=== PATIENT | male | born 1965 | race Two or more races ===

== ENCOUNTER 2025-03-02 20:27 | Inpatient (IN) | payer MEDICAID ==
[~2025-03-02] VITALS: Ht 170.2 cm; Wt 68.6 kg
[2025-03-02 20:59] LABS: PLATELET COUNT (AUTO) 261 K/uL (150-450); RED BLOOD CELL COUNT(AUTO) 4.71 MIL/uL (4.50-5.90); RED CELL DISTRIBUTION WIDTH 14.1 % (11.5-14.5); WHITE BLOOD COUNT (AUTO) 11.5 K/uL (4.5-11.0)
[2025-03-02 21:07] LABS: CALCIUM, TOTAL 8.0 mg/dL (8.8-10.5); CREATININE 1.48 mg/dL (0.60-1.30); GLOMERULAR FILTR. RATE CALC 49 mL/min (>60); GLUCOSE,RANDOM 202 mg/dL (70-110); SODIUM SERUM 143 mmol/L (136-145); UREA NITROGEN, BLOOD 23 mg/dL (7-18)
[2025-03-02 21:16] LABS: TROPONIN I-HIGH SENSITIVITY 22 ng/L (<76)
[2025-03-02] MEDS: NALOXONE HCL 1 MG/ML 2 ML SYRINGE IVP ONE (21:25)
[2025-03-02 21:33] LABS: APPEARANCE,URINE CLEAR (CLEAR); GLUCOSE, URINE (UA) NEGATIVE (NEGATIVE); LEUKOCYTE ESTERASE ,URINE NEGATIVE (NEGATIVE); NITRATE,URINE NEGATIVE (NEGATIVE); OCCULT BLOOD,URINE NEGATIVE (NEGATIVE); PH,URINE DRUG SCREEN 5.5 (5.0-8.0); SPECIFIC GRAVITIY, URINE 1.012 (1.003-1.030)
[2025-03-02 21:38] LABS: AMPHET/METH SCREEN,URINE NEGATIVE (NEGATIVE); BARBITURATE SCREEN, URINE NEGATIVE (NEGATIVE); CANNABINOID SCREEN,URINE NEGATIVE (NEGATIVE); COCAINE SCREEN,URINE NEGATIVE (NEGATIVE); METHADONE SCREEN, URINE NEGATIVE (NEGATIVE)
[2025-03-02 21:45] LABS: ALCOHOL, URINE DRUG SCREEN POSITIVE (NEGATIVE)
[2025-03-02] MEDS: NALOXONE HCL 10 MG in DEXTROSE 5%-WATER 240 ML IV PRN (22:08)
[2025-03-02] MEDS ORDERED: MAGNESIUM HYDROXIDE SUSPENSION 30 ML UDCUP PO PRN (22:15)
[2025-03-02] MEDS ORDERED: ACETAMINOPHEN 325 MG TABLET PO PRN (22:15)
[2025-03-02] MEDS ORDERED: BISACODYL 10 MG RECTAL RECTAL SUPPOSITORY PR PRN (22:15)
[2025-03-02] MEDS ORDERED: ZOLPIDEM TARTRATE 5 MG TABLET PO PRN (22:15)
[2025-03-02] MEDS: SODIUM CHLORIDE 0.9% 1,000 ML IV ONE ×2 (22:26→23:20)
[2025-03-02] MEDS: ONDANSETRON HCL 4 MG/2 ML VIAL IVP PRN (22:28)
[2025-03-02 22:50] LABS: ABG BASE EXCESS -8.2 mmol/L (-2.0-3.0); ABG CARBOXYHEMOGLOBIN 0.3 % (0.5-1.5); ABG HCO3 18.1 mmol/L (21.0-28.0); ABG METHEMOGLOBIN 0.2 % (0.0-1.5); ABG OXYGEN CONTENT 19.5 mL/dL (15.0-23.0); ABG OXYGEN SATURATION 97.6 % (94.0-98.0); ABG OXYHEMOGLOBIN 97.1 % (94.0-98.0); ABG PCO2 44 mmHg (32.0-48.0); ABG PH 7.252 (7.350-7.450); ABG TOTAL HEMOGLOBIN 14.2 G/dL (13.5-17.5); FRACTIONATED INSPIRED OXYGEN 32.0 % (21-100.0); PO2, ARTERIAL BG 117.4 mmHg (83.0-108.0); SOURCE, BLOOD GAS ARTERIAL; TEMPERATURE, FAHRENHEIT, BG 97.5 FAHREN (96.0-98.6)
[2025-03-02 22:51] LABS: SITE, BLOOD GAS RT RADIAL
[2025-03-02 22:52] LABS: ABG A-A DIFF O2 59.6 mmHg (10-20.0); ALLEN TEST, BLOOD GAS Positive; FLOW, BLOOD GAS 3.00 L/min (0.00-15.00); O2 DEVICE,BLOOD GAS CANNULA (ROOM AIR); PATIENT RATE, BG 16.0 min.
[2025-03-02] MEDS: HEPARIN SODIUM,PORCINE 5,000 UNITS/ML VIAL SQ SCH (23:20)
[2025-03-03] MEDS: ONDANSETRON HCL 4 MG/2 ML VIAL IVP ONE (01:26)
[2025-03-03 02:50] VITALS: BP 160/86; PULSE 75; RESP 12; TEMP 98; O2SAT 98
[2025-03-03 04:00] VITALS: BP 128/75; PULSE 79; RESP 18; TEMP 98; O2SAT 98
[2025-03-03 05:39] LABS: PLATELET COUNT (AUTO) 197 K/uL (150-450); RED BLOOD CELL COUNT(AUTO) 4.19 MIL/uL (4.50-5.90); RED CELL DISTRIBUTION WIDTH 13.9 % (11.5-14.5); WHITE BLOOD COUNT (AUTO) 10.0 K/uL (4.5-11.0)
[2025-03-03 06:08] LABS: CALCIUM, TOTAL 7.6 mg/dL (8.8-10.5); CREATININE 0.88 mg/dL (0.60-1.30); GLOMERULAR FILTR. RATE CALC > 60 mL/min (>60); GLUCOSE,RANDOM 118 mg/dL (70-110); SODIUM SERUM 142 mmol/L (136-145); UREA NITROGEN, BLOOD 18 mg/dL (7-18)
[2025-03-03 08:00] VITALS: BP 132/73; PULSE 69; RESP 19; TEMP 98.1; O2SAT 96
[2025-03-03] MEDS: DOCUSATE SODIUM 100 MG CAPSULE PO SCH (08:23)
[2025-03-03] MEDS: ETHYL ALCOHOL 62% ANTISEPTIC NASAL SANITIZER 0.6 ML AMPUL NASAL SCH (08:23)
[2025-03-03] MEDS: PANTOPRAZOLE SODIUM 40 MG DR TABLET PO SCH (08:23)
[2025-03-03 12:00] VITALS: BP 162/79; PULSE 65; RESP 18; TEMP 98; O2SAT 94
[2025-03-03 16:00] VITALS: BP 156/85; PULSE 70; RESP 17; TEMP 98; O2SAT 95
[2025-03-03 20:00] VITALS: BP 157/80; PULSE 67; RESP 18; TEMP 98.5; O2SAT 92
[2025-03-04] VITALS: BP 139/77; PULSE 79; RESP 14; TEMP 98.9; O2SAT 93
[2025-03-04 04:00] VITALS: BP 145/88; PULSE 66; RESP 14; TEMP 98.6; O2SAT 96
[2025-03-04 05:22] LABS: PLATELET COUNT (AUTO) 182 K/uL (150-450); RED BLOOD CELL COUNT(AUTO) 4.23 MIL/uL (4.50-5.90); RED CELL DISTRIBUTION WIDTH 14.0 % (11.5-14.5); WHITE BLOOD COUNT (AUTO) 6.0 K/uL (4.5-11.0)
[2025-03-04 05:39] LABS: CALCIUM, TOTAL 7.7 mg/dL (8.8-10.5); CREATININE 0.75 mg/dL (0.60-1.30); GLOMERULAR FILTR. RATE CALC > 60 mL/min (>60); GLUCOSE,RANDOM 89 mg/dL (70-110); SODIUM SERUM 133 mmol/L (136-145); UREA NITROGEN, BLOOD 13 mg/dL (7-18)
[2025-03-04 08:00] VITALS: BP 133/91; PULSE 85; RESP 17; TEMP 98.4; O2SAT 98
[2025-03-04 12:00] VITALS: BP 136/104; PULSE 66; RESP 16; TEMP 98.6; O2SAT 97
[2025-03-04] MEDS ORDERED: AMLO-257 PO (15:31)
[2025-03-04 16:00] VITALS: BP 144/87; PULSE 68; RESP 16; TEMP 98.6; O2SAT 97
== END 2025-03-04 16:45 | disposition home or self-care (01) | DRG 812 ==
LOC: EMS 20:27 → EDH 22:15 → ICU 03-03 02:50
PROVIDERS: ADMIT Internal Medicine; ATTEND Internal Medicine
DX: T40.411A Poisoning by fentanyl or fentanyl analogs, accidental (unintentional), initial encounter (principal); G92.9 Unspecified toxic encephalopathy; N17.9 Acute kidney failure, unspecified; F15.10 Other stimulant abuse, uncomplicated; F11.10 Opioid abuse, uncomplicated; F10.929 Alcohol use, unspecified with intoxication, unspecified; Y90.3 Blood alcohol level of 60-79 mg/100 ml; Z79.899 Other long term (current) drug therapy; Y92.89 Other specified places as the place of occurrence of the external cause
CPT/HCPCS: 71045; 80048; 80307; 81001; 82805; 84484; 85025; 87081; 93005; 96374; 97116; 97162; 97530; 99291; G0480; J1644; J2312; J2405; J7060; 36415-L1; 36415-TC